=== PATIENT | male | born 1955 | race Caucasian/White ===

== ENCOUNTER 2018-05-09 10:17 | Emergency (ER) | payer MEDICARE ==
[~2018-05-09] VITALS: Ht 188 cm; Wt 79.5 kg
[2018-05-09 10:28] VITALS: Ht 188 cm; Wt 79.5 kg
[2018-05-09] MEDS ORDERED: LIBRIUM5 MG PO (10:32)
[2018-05-09] MEDS ORDERED: LIBRIUM25 MG PO (10:33)
[2018-05-09 12:52] LABS: BASOPHILS 0.1 % (0-2); EOSINOPHILS 0.7 % (0-7); HEMATOCRIT 41.8 % (42.0-54.0); HEMOGLOBIN 14.4 g/dL (13.5-17.5); IMMATURE GRANULOCYTES 0.2 % (0-5); LYMPHOCYTES 13.2 % (15-50); MCH 36.8 pg (26.0-34.0); MCHC 34.4 g/dL (31.0-37.0); MCV 106.9 fL (80.0-100.0); MEAN PLATELET VOLUME 9.7 fL (7.4-10.4); MONOCYTES 10.7 % (2-11); NEUTROPHILS 75.1 % (40-80); PLATELET COUNT 168 10x3/uL (130-400); RBC 3.91 10x6/uL (4.20-6.10); RDW 12.8 % (11.5-14.5); WBC 9.7 10x3/uL (4.8-10.8)
[2018-05-09 13:08] LABS: ALBUMIN 2.9 g/dL (3.4-5.0); ALKALINE PHOSPHATASE 79 U/L (46-116); ALT (SGPT) 102 U/L (10-68); BILIRUBIN - TOTAL 0.31 mg/dL (0.2-1.3); CALC OSMOLALITY 276 mosm/kg (275-300); CALCIUM 9.2 mg/dL (8.5-10.1); CARBON DIOXIDE 34.6 mmol/L (21.0-32.0); CHLORIDE - SERUM 101 mmol/L (98-107); CREATININE - SERUM 0.7 mg/dL (0.6-1.3); GLUCOSE 97 mg/dL (74-106); MAGNESIUM - SERUM 1.6 mg/dL (1.8-2.4); POTASSIUM - SERUM 4.2 mmol/L (3.5-5.1); PROTEIN - SERUM 6.6 g/dL (6.4-8.2); SODIUM 139 mmol/L (136-145); UREA NITROGEN 11 mg/dL (7-18); eGFR NON AFRICAN AMERICAN > 90 mL/min (90-120)
[2018-05-09 13:50] LABS: CKMB 0.5 U/L (0.0-3.6); TROPONIN-I < 0.017 ng/mL (0.000-0.060)
[2018-05-09 15:30] VITALS: BP 124/79
== END 2018-05-09 17:10 | disposition home or self-care (01) ==
LOC: D.ER 10:17
PROVIDERS: Emergency Medicine
DX: R07.9 Chest pain, unspecified (principal); R44.0 Auditory hallucinations; R44.1 Visual hallucinations; E83.42 Hypomagnesemia; F17.200 Nicotine dependence, unspecified, uncomplicated; R00.0 Tachycardia, unspecified